=== PATIENT | male | born 1980 | race Caucasian/White ===

== ENCOUNTER 2016-08-10 11:18 | Emergency (ER) | payer SELFPAY ==
[~2016-08-10] VITALS: Ht 167.6 cm; Wt 78.9 kg
[2016-08-10 11:22] VITALS: Ht 167.6 cm; Wt 78.9 kg
[2016-08-10] MEDS ORDERED: HYDROCODONE/APAP (5/325) TAB PO ONE (12:00)
[2016-08-10] MEDS ORDERED: IBUPROFEN 600 MG TAB PO ONE (12:00)
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
[2016-08-10] MEDS ORDERED: IBUP-1542 PO (13:03)
[2016-08-10 13:23] VITALS: BP 118/64; PULSE 72; RESP 19; TEMP 98.2
== END 2016-08-10 13:24 | disposition home or self-care (01) ==
LOC: FTE 11:18
DX: S09.92XA Unspecified injury of nose, initial encounter (principal); F17.210 Nicotine dependence, cigarettes, uncomplicated; Y08.89XA Assault by other specified means, initial encounter
CPT/HCPCS: 70486